=== PATIENT | male | born 1975 | race Caucasian/White ===

== ENCOUNTER → 2023-02-07 12:37 | Outpatient (CLI) | payer OTHER, SELFPAY ==
--- NOTE | 2023-02-07 | DI.MRI.S_ITS ---
PROCEDURE: MR BRAIN (IAC) WWO CON INDICATIONS: Sensorineural hearing loss, bilateral TECHNIQUE: Noncontrast sagittal T1 spin echo, axial FLAIR, axial gradient echo, axial diffusion and ADC through the brain. Axial thin-slice 3D CISS, coronal TruFISP, axial T1 spin echo with fat saturation through the internal auditory canals. After the administration of contrast, thin slice axial and coronal T1 spin echo with fat saturation through the internal auditory canals, and axial and coronal and sagittal T1 spin echo with fat saturation through the brain. COMPARISON: None. FINDINGS: Image quality: Excellent. Cerebellopontine angles: No cerebellopontine angle masses. Inner ear structures appear normally formed. No suspicious enhancement in the internal auditory canal or along the course of the 7th cranial nerve. CSF spaces: Ventricles are normal in size and shape. No extra-axial fluid collections. Basal cisterns are patent. Brain: No intracranial bleeds or mass effects. Duran-white matter interface is intact. No abnormal intracranial enhancement. T2/FLAIR hyperintensities throughout the supratentorial white matter are nonspecific. Diffusion weighted images demonstrate no acute ischemic insults. Brainstem appears normal. Normal intravascular flow voids are present. Skull and face: Calvarial marrow signal is normal. Orbits appear normal. Sinuses: Sinuses and mastoids are clear. IMPRESSION: 1. The IAC's are normal in appearance without mass or abnormal enhancement. 2. Scattered T2/FLAIR hyperintensities throughout the supratentorial white matter. These are nonspecific and may represent early chronic microvascular ischemic changes. Demyelinating disease is also in the differential diagnosis. Recommend clinical correlation. 3. No acute intracranial abnormalities. No abnormal intracranial enhancement. Dictated by: Vitor Wong M.D. on 02/07/2023 at 14:54 Approved by: Vitor Wong M.D. on 02/07/2023 at 15:01
== END ==
PROVIDERS: Referring Provider Physician Assistant; Visit Provider Physician Assistant
DX: H90.3 Sensorineural hearing loss, bilateral (principal)
CPT/HCPCS: 70553